=== PATIENT | male | born 1955 | race Caucasian/White ===

== ENCOUNTER 2020-01-10 05:22 | Day surgery (SDC) | payer MEDICAID ==
[2020-01-04 12:14] LABS: BASOPHILS # (AUTO) 0.1 X10'3 (0-0.2); BASOPHILS % (AUTO) 1.3 % (0-1); EOSINOPHILS # (AUTO) 0.1 X10'3 (0-0.9); EOSINOPHILS % (AUTO) 1.5 % (0-6); LYMPHOCYTES # (AUTO) 1.3 X10'3 (1.1-4.8); LYMPHOCYTES % (AUTO) 20.6 % (21-51); MEAN CORPUSCULAR HEMOGLOBIN 31.8 PG (27.0-31.0); MEAN CORPUSCULAR HGB CONC 33.5 g/dL (33.0-36.5); MEAN CORPUSCULAR VOLUME 95.1 FL (78-98); MEAN PLATELET VOLUME 6.9 FL (7.4-10.4); MONOCYTES # (AUTO) 0.5 X10'3 (0-0.9); MONOCYTES % (AUTO) 7.4 % (2-12); NEUTROPHILS # (AUTO) 4.2 X10'3 (1.8-7.7); NEUTROPHILS % (AUTO) 69.2 % (42-75); PRE OP HEMATOCRIT 45.2 % (42.0-52.0); PRE OP HEMOGLOBIN 15.1 g/dL (14.0-17.9); PRE OP PLATELET COUNT 289 X10'3 (140-440); RED BLOOD COUNT 4.75 X10'6 (4.70-6.10); RED CELL DISTRIBUTION WIDTH 12.4 % (11.5-14.5)
[2020-01-04 12:31] LABS: ALBUMIN 4.1 G/DL (3.4-5.0); ALBUMIN/GLOBULIN RATIO 1.1 (1.1-1.5); ALKALINE PHOSPHATASE 80 IU/L (46-116); BLOOD UREA NITROGEN 13 MG/DL (7-18); BUN/CREATININE RATIO 16.7 (5.4-32.0); CALCIUM 9.7 MG/DL (8.5-10.1); CHLORIDE 105 MMOL/L (99-107); CREATININE 0.78 MG/DL (0.60-1.10); PRE OP ALT 32 U/L (30-65); PRE OP ANION GAP 9 (8-16); PRE OP AST 20 U/L (10-37); PRE OP BILIRUB, TOTAL 0.6 MG/DL (0.0-1.0); PRE OP GLUCOSE 116 MG/DL (70-104); PRE OP POTASSIUM 4.2 MMOL/L (3.4-5.1); PRE OP SODIUM 140 MMOL/L (135-145); TOTAL CARBON DIOXIDE 25.9 MMOL/L (24-32); TOTAL PROTEIN 7.7 G/DL (6.4-8.2); eGFR > 90 ML/MIN
[~2020-01-10] VITALS: Ht 175.3 cm; Wt 92.4 kg
[~2020-01-10 05:22] MED LIST: ASCO-10 PO; CHOL100024 PO; MAGN400C PO; MSN; MULT-227 PO; PRAS25CA PO; TUMERIC; [UNRECOGNIZED DRUG - OTHER]; [UNRECOGNIZED DRUG - OTHER]; ringers solution, lacted 1,000 ML IV SCH
[2020-01-10] MEDS ORDERED: famotidine 20mg tablet PO ONE (05:30)
[2020-01-10] MEDS ORDERED: ceFAZolin 2gm in dextrose, iso 50 ML IV ONE (05:30)
[2020-01-10] MEDS ORDERED: cloNIDine hcl/PF 100mcg/ml inj ONE (06:53)
[2020-01-10] MEDS ORDERED: midazolam 2 mg/2 ml injection ONE (06:55)
[2020-01-10] MEDS ORDERED: sevoflurane 250ml liquid IH ONE (06:55)
[2020-01-10] MEDS ORDERED: fentaNYL /PF 50mcg/ml 5ml ampule ONE (06:57)
[2020-01-10] MEDS ORDERED: LIDOcaine 1% (10mg/ml) 2ml vial ONE (07:01)
[2020-01-10] MEDS ORDERED: dexamethasone sod phosphate 4mg/ml inj. ONE ×2 (07:35→07:37)
[2020-01-10] MEDS ORDERED: ROPIVAcaine 0.5% (5mg/ml) 30ml vial ONE (07:35)
[2020-01-10] MEDS ORDERED: LIDOcaine 1%/PF 5ML 10 MG/ML VIAL ONE (07:35)
[2020-01-10] MEDS ORDERED: LIDOcaine 2% (20mg/ml) 5ml vial ONE (07:35)
[2020-01-10] MEDS ORDERED: propofol inj 20 ML IV ONE (07:35)
[2020-01-10] MEDS ORDERED: ondansetron/PF 4mg/2ml inj ONE (07:37)
[2020-01-10] MEDS ORDERED: 0.9 % SODIUM CHLORIDE 10 ML VIAL ONE (07:39)
[2020-01-10] MEDS ORDERED: ePHEDrine 50MG/ML INJ. ONE (07:39)
[2020-01-10] MEDS ORDERED: acetaminophen 1,000mg/100ml IV 100 ML IV ONE (07:44)
[2020-01-10 07:57] VITALS: BP 132/97
[2020-01-10 08:00] VITALS: BP 132/97
[2020-01-10] MEDS ORDERED: morphine 4 MG/ML inj SYRINge IV PRN (08:00)
[2020-01-10] MEDS ORDERED: meperidine/PF 25mg/ml syringe IV PRN ×3 (08:00)
[2020-01-10] MEDS ORDERED: morphine 2 MG/ML inj. syringe IV PRN (08:00)
[2020-01-10] MEDS ORDERED: labetalol 20mg/4ml (5mg/ml) syringe IV PRN (08:00)
[2020-01-10] MEDS ORDERED: hydrALAZINE 20mg/ml inj. IV PRN (08:00)
[2020-01-10] MEDS ORDERED: ringers solution, lacted 1,000 ML IV SCH (08:00)
[2020-01-10] MEDS ORDERED: ondansetron/PF 4mg/2ml inj IV PRN (08:00)
[2020-01-10] MEDS ORDERED: proCHLORperazine 10 MG/2 ml inj IV PRN (08:00)
[2020-01-10 08:30] VITALS: BP 127/82
[2020-01-10] MEDS ORDERED: HYDROcodone/acetaminophen 10/325mg tab PO PRN (08:30)
--- NOTE | 2020-01-10 08:30 | NUR ---
Received from OR via BED, accompanied by Anesthesiologist DR CHAVARRIA-- and report given by Anesthesiolgist. PATIENT A&OX4, DENIES PAIN, V/S WNL, NEUROVASCULAR CHECKS INTACT, 20G PIV RUE, SCD ON, SPLINT DRESSING TO LEFT ARM CDI
[2020-01-10 08:40] VITALS: BP 128/80
[2020-01-10 08:50] VITALS: BP 124/78
[2020-01-10 09:00] VITALS: BP 127/74
--- NOTE | 2020-01-10 09:00 | NUR ---
PATIENT A&OX4, DENIES PAIN, V/S WNL, NEUROVASCULAR CHECKS INTACT, 20G PIV RUE D/C, SCD OFF, SPLINT DRESSING TO LEFT ARM CDI, I HAVE REVIEWED D/C INSTRUCTIONS WITH PATIENT AND FAMILY AND THEY HAVE VERBALIZED UNDERSTANDING. PATIENT D/C HOME WITH ALL BELONGINGS AND FAMILY GAVE TRANSPORT HOME.
== END 2020-01-10 09:00 | disposition home or self-care (01) ==
LOC: PAS 05:22
PROVIDERS: ATTEND Orthopaedic Surgery
DX: S46.212A Strain of muscle, fascia and tendon of other parts of biceps, left arm, initial encounter (principal); M75.22 Bicipital tendinitis, left shoulder; G89.18 Other acute postprocedural pain; Z79.899 Other long term (current) drug therapy; Z72.89 Other problems related to lifestyle; Z98.890 Other specified postprocedural states; Z20.828 Contact with and (suspected) exposure to other viral communicable diseases; W01.0XXA Fall on same level from slipping, tripping and stumbling without subsequent striking against object, initial encounter; Y93.89 Activity, other specified; Y92.89 Other specified places as the place of occurrence of the external cause; Y99.8 Other external cause status
CPT/HCPCS: 24342; 36415; 64417; 76942; 80053; 82948; 85025; 87635; 93005; C1713; J0131; J0735; J1100; J2001; J2250; J2405; J2704; J3010; A4215; A4618; A6449; A7000; J2795; J7120